=== PATIENT | male | born 1930 | race Caucasian/White ===

== ENCOUNTER 2016-11-23 02:31 | Inpatient (IN) ==
[2016-11-23 02:55] LABS: Basophils % 0.5 %; Eosinophils # 0.2 K/mcL (0.0-0.6); Eosinophils % 2.3 %; Hematocrit 46.7 % (37.5-50.1); Hemoglobin 15.5 g/dL (12.9-16.9); Immature Granulocytes % 0.5 % (0-4); Immature Platelets 2.7 % (1.1-6.1); Lymphocytes # 3.1 K/mcL (0.6-4.6); Lymphocytes % 36.5 %; Mean Corpuscular HGB Conc 33.2 g/dL (31.6-35.5); Mean Corpuscular Hemoglobin 29.6 pg (28.0-33.3); Mean Corpuscular Volume 89.1 fL (83.0-100.0); Mean Platelet Volume 9.9 fL (9.4-12.4); Monocytes # 0.7 K/mcL (0.0-1.3); Monocytes % 8.6 %; Neutrophils # 4.3 K/mcL (1.6-8.9); Platelet Count 188 K/mcL (140-400); Red Blood Count 5.24 M/mcL (4.19-5.50); Red Cell Distribution Width 13.8 % (11.5-14.5); Segmented Neutrophils % 51.6 %
[2016-11-23 03:05] LABS: BUN/Creatinine Ratio 13 (6-26); Blood Urea Nitrogen 14 mg/dL (8-26); Calcium 8.9 mg/dL (8.6-10.8); Carbon Dioxide 21 mEq/L (19-29); Chloride 109 mEq/L (98-109); Glucose 92 mg/dL (70-99); Osmolality,Calculated 290 (280-300); Potassium 4.2 mEq/L (3.5-4.5); Sodium 140 mEq/L (136-145); eGFR For African Americans > 60 (> 60); eGFR For Non-African Americans > 60 (> 60)
[2016-11-23 03:09] LABS: INR 1.1; Prothrombin Time 11.6 Seconds (9.4-12.1)
[2016-11-23 03:12] LABS: Activated Partial Thrombo Time 29.8 Seconds (26.0-36.0)
--- NOTE | 2016-11-23 03:57 | Emergency Department Note ---
Disposition Clinical Impression: PVCs (premature ventricular contractions), Weakness generalized, Heart palpitations, Acute chest pain Disposition: Admitted As Inpatient Condition: Serious Time of Disposition: 04:04 Chest Pain HPI - General Chief Complaint: ED Chest Pain Stated Complaint: CP Time Seen by Provider: 11/23/16 02:39 Source: EMS Limitations: other Vital Signs Reviewed: Yes Nursing Notes Reviewed: Yes - History of Present Illness HPI Narrative: Patient's age 86-year-old male complains of not be feeling his heart 2 days after the administration of [facility] Medications believed to be Depakote. Patient states that he does not know what medications he is on. Patient states they gave him this Medication and Feels heart after he takes. Patient denies chest pain. Patient states feels like when grabbed his heart removed from his chest but no pain. Patient denies any other medical problems. Patient has a history of dementia. Severity scale (1-10): 0 - Related Data Home Medications Medication Instructions Recorded Confirmed Cetirizine HCl [All Day Allergy] 10 mg PO DAILY 11/23/16 11/23/16 Cholecalciferol (Vitamin D3) 50,000 unit PO Q7D 11/23/16 11/23/16 [Vitamin D] Fluticasone Propionate [Flonase 2 spray IN DAILY 11/23/16 11/23/16 Allergy Relief] Mag Hydrox/Al Hydrox/Simeth 30 ml PO TID PRN 11/23/16 11/23/16 [Maalox] Memantine [Namenda] 10 mg PO BID 11/23/16 11/23/16 Montelukast [Singulair] 10 mg PO DAILY 11/23/16 11/23/16 Omeprazole [Omeprazole] 20 mg PO DAILY 11/23/16 11/23/16 Quetiapine Fumarate [Seroquel] 75 mg PO HS 11/23/16 11/23/16 Sennosides/Docusate Sodium 2 tab PO TID PRN 11/23/16 11/23/16 [Senna-S Tablet] Tamsulosin [Flomax] 0.8 mg PO HS 11/23/16 11/23/16 TraZODone [TraZODone] 50 mg PO TID PRN 11/23/16 11/23/16 Valproic Acid [Valproic Acid] 1,250 mg PO HS 11/23/16 11/23/16 Allergies Allergy/AdvReac Type Severity Reaction Status Date / Time acetaminophen [From Vicodin] Allergy See Verified 11/23/16 02:58 Comments hydrocodone [From Vicodin] Allergy See Verified 11/23/16 02:58 Comments piroxicam [From Feldene] Allergy See Verified 11/23/16 02:58 Comments Terazosin Allergy See Verified 11/23/16 02:58 Comments Review of Systems: Patient admits to weakness and lack of sensation of heart only, denies headache , shortness of breath, vision change, dizziness, cough, abdominal pain, numbness and tingling in extremities, dysuria, diarrhea. All systems ED: reviewed and negative except as stated. Chest Pain PMH - Past Medical History Medical history: Reports: COPD, dementia, GERD, hyperlipidemia Psychiatric history: Reports: anxiety, depression, other - Social History Smoking Status: Never smoker Alcohol use: Reports: none Drug use: Reports: none Physical Exam Vital Signs Temperature 98.9 F 11/23/16 02:34 Pulse Rate 63 11/23/16 02:34 Respiratory Rate 20 11/23/16 02:34 Blood Pressure 144/69 11/23/16 02:34 O2 Sat by Pulse Oximetry 99 11/23/16 02:34 Temperature 98.9 F 11/23/16 02:34 Pulse Rate 60 11/23/16 03:49 Respiratory Rate 16 11/23/16 03:49 Blood Pressure 127/78 11/23/16 03:49 O2 Sat by Pulse Oximetry 96 11/23/16 03:49 Oxygen Delivery Oxygen Delivery Nasal Cannula -General Appearance: Patient is a 86-year-old male who is alert and oriented 3 and in no acute distress. -Neurological exam: Cranial nerves II-12 intact, no focal deficits observed, strength equal 5/5 bilaterally in upper and lower extremities, cerebellar motion test negative. Negative loss of sensation - Head Head exam: atraumatic, normocephalic, normal inspection - Eye Eye exam: Present: normal appearance, PERRL, EOMI, negative for scleral icterus negative for conjunctival pallor - ENT ENT exam: normal exam, normal oropharynx, mucous membranes moist - Neck Neck exam: Present: normal inspection, full ROM, trachea midline, negative JVD - Chest Chest inspection: Present: Patient has bilateral equal rise and fall of chest wall. Non-tender to palpation. - Respiratory Respiratory exam: Clear to auscultation bilaterally without wheezes rales or rhonchi Cardiovascular Cardiovascular exam: Present: Irregular rate, irregular rhythm, without murmurs rubs or gallops. - Abdominal Exam Abdominal exam: Present: soft, nondistended, Non-Tender light and deep palpation in all quadrants. Bowel sounds normoactive throughout all 4 quadrants. Negative for hyper or hyperresonance. - Extremities Exam Extremities exam: Present: normal inspection, full ROM - Back Exam Back exam: Present: normal inspection, full ROM. Absent: tenderness, CVA tenderness (R), CVA tenderness (L) - Psychiatric Psychiatric exam: Present: normal affect, normal mood - Skin Skin exam: Present: warm, dry, intact, normal color - General Limitations: other General appearance: alert, in no apparent distress Course Course Narrative: Patient is seen and examined. Imaging, labs ordered - Reevaluation(s) Reevaluation #1: Patient still doing well and has some very colorful stories. Time: 03:30 - Consultations Consultation #1: Dr. Coleman accepted for admission and observation. Time: 04:04 Vital Signs Temperature 98.9 F 11/23/16 02:34 Pulse Rate 63 11/23/16 02:34 Respiratory Rate 20 11/23/16 02:34 Blood Pressure 144/69 11/23/16 02:34 O2 Sat by Pulse Oximetry 99 11/23/16 02:34 Temperature 97.4 F L 11/23/16 05:25 Pulse Rate 63 11/23/16 05:25 Respiratory Rate 17 11/23/16 05:25 Blood Pressure 164/74 11/23/16 05:25 O2 Sat by Pulse Oximetry 98 11/23/16 05:25 Oxygen Delivery Oxygen Delivery Nasal Cannula Chest Pain - [facility] Narrative Medical decision making narrative: Patient comes in with a new onset of dysrhythmia sinus bradycardia with frequent PVCs and onset of weakness and complains of not being able to feel his heart. Patient states she was started on a new medication and had 2 doses.. Each dose resulted in the same feeling of not being would feel his heart per the patient. On arrival patient is alert and oriented 3. Patient does have a component of dementia, the patient states that he is otherwise started feel better. Patient denies any chest pain but states he cannot feel his heart and feels empty in his chest. Patient has a heart score 5. Chest x-ray was unremarkable. Patient's labs were unremarkable. Troponin 0.00. Patient's current heart rate 60 Although patient is feeling better, due to patient's age and seriousness of patient's description not being to feel his heart and a report of heart palpitations due to starting Depakote or some other new medication. It is unsure if this is a side effect of a medication change, but recommend observation overnight. Dr. Coleman cystectomy patient for observation. - Medical Records Medical records reviewed: Yes I reviewed the patient's medical records. - Lab Data Lab results reviewed: Yes I reviewed the patient's lab results. Lab results narrative: Short CBC 11/23/16 Range/Units 02:45 WBC 8.4 (4.3-11.1) K/mcL Hgb 15.5 (12.9-16.9) g/dL Hct 46.7 (37.5-50.1) % Plt Count 188 (140-400) K/mcL Neutrophils # 4.3 (1.6-8.9) K/mcL BMP 11/23/16 Range/Units 02:45 Sodium 140 (136-145) mEq/L Potassium 4.2 (3.5-4.5) mEq/L Chloride 109 (98-109) mEq/L Carbon Dioxide 21 (19-29) mEq/L BUN 14 (8-26) mg/dL Creatinine 1.04 (0.72-1.25) mg/dL Glucose 92 (70-99) mg/dL Calcium 8.9 (8.6-10.8) mg/dL Cardiac Enzymes 11/23/16 Range/Units 02:45 Troponin I 0.00 (0-0.03) ng/mL Result diagrams: 11/23/16 02:45 11/23/16 02:45 Lab Results 11/23/16 11/23/16 11/23/16 Range/Units 02:45 02:45 02:45 WBC 8.4 (4.3-11.1) K/mcL RBC 5.24 (4.19-5.50) M/mcL Hgb 15.5 (12.9-16.9) g/dL Hct 46.7 (37.5-50.1) % MCV 89.1 (83.0-100.0) fL MCH 29.6 (28.0-33.3) pg MCHC 33.2 (31.6-35.5) g/dL RDW 13.8 (11.5-14.5) % Plt Count 188 (140-400) K/mcL MPV 9.9 (9.4-12.4) fL Immature Gran % 0.5 (0-4) % Seg Neutrophils % 51.6 % Lymphocytes % 36.5 % Monocytes % 8.6 % Eosinophils % 2.3 % Basophils % 0.5 % Neutrophils # 4.3 (1.6-8.9) K/mcL Lymphocytes # 3.1 (0.6-4.6) K/mcL Monocytes # 0.7 (0.0-1.3) K/mcL Eosinophils # 0.2 (0.0-0.6) K/mcL Basophils # 0.0 (0.0-0.2) K/mcL Immature Plt Fraction 2.7 (1.1-6.1) % PT 11.6 (9.4-12.1) Seconds INR 1.1 APTT 29.8 (26.0-36.0) Seconds Sodium 140 (136-145) mEq/L Potassium 4.2 (3.5-4.5) mEq/L Chloride 109 (98-109) mEq/L Carbon Dioxide 21 (19-29) mEq/L BUN 14 (8-26) mg/dL Creatinine 1.04 (0.72-1.25) mg/dL Est GFR ( Amer) > 60 (> 60) Est GFR (Non-Af Amer) > 60 (> 60) BUN/Creatinine Ratio 13 (6-26) Glucose 92 (70-99) mg/dL Calculated Osmolality 290 (280-300) Calcium 8.9 (8.6-10.8) mg/dL Troponin I (0-0.03) ng/mL 11/23/16 Range/Units 02:45 WBC (4.3-11.1) K/mcL RBC (4.19-5.50) M/mcL Hgb (12.9-16.9) g/dL Hct (37.5-50.1) % MCV (83.0-100.0) fL MCH (28.0-33.3) pg MCHC (31.6-35.5) g/dL RDW (11.5-14.5) % Plt Count (140-400) K/mcL MPV (9.4-12.4) fL Immature Gran % (0-4) % Seg Neutrophils % % Lymphocytes % % Monocytes % % Eosinophils % % Basophils % % Neutrophils # (1.6-8.9) K/mcL Lymphocytes # (0.6-4.6) K/mcL Monocytes # (0.0-1.3) K/mcL Eosinophils # (0.0-0.6) K/mcL Basophils # (0.0-0.2) K/mcL Immature Plt Fraction (1.1-6.1) % PT (9.4-12.1) Seconds INR APTT (26.0-36.0) Seconds Sodium (136-145) mEq/L Potassium (3.5-4.5) mEq/L Chloride (98-109) mEq/L Carbon Dioxide (19-29) mEq/L BUN (8-26) mg/dL Creatinine (0.72-1.25) mg/dL Est GFR ( Amer) (> 60) Est GFR (Non-Af Amer) (> 60) BUN/Creatinine Ratio (6-26) Glucose (70-99) mg/dL Calculated Osmolality (280-300) Calcium (8.6-10.8) mg/dL Troponin I 0.00 (0-0.03) ng/mL - Radiology Data Radiology results reviewed: Yes I reviewed the patient's radiology results. Chest X-Ray 11/23/16 02:39 IMPRESSION: Low lung volumes with bibasilar atelectasis D/ / Clayton Andre MD / Clayton Andre MD Interpreting Provider: Clayton Andre MD - EKG Data EKG attestation: Yes I reviewed and interpreted this EKG. EKG results narrative: 11/23/2016@0234 hrs.: EKG shows a sinus bradycardia Cartia with PVCs and no ST depressions or elevations. Previous EKG taken 128 2010 shows sinus bradycardia rate of 52 bpm no PVCs Heart Score - Score History: Moderately Suspicious EKG: Non Specific repolarisation Disturbance Age: Greater than 65 Risk Factors: 1-2 risk factors Troponin: Less than normal limit HEART Score Total: 5 Attestation Statement - Attestation Attestation: For this encounter, I have reviewed the resident, UNLOAD ASSOCIATE, or PA documentation, treatment plan, and medical decision making; and I have had face to face time with this patient. 86-year-old male [facility] from [facility] with concerns of chest pain. Patient states that he was feeling his heart skipping beats and had a pressure in his chest. He tried to walk to the nurse's station and developed lightheadedness, palpitations and a feeling of near syncope. Patient denies a history of cardiac disease. Patient denies fever, nausea, vomiting, abdominal pain. Physical examination reveals an alert elderly male in no acute distress. Lungs were clear to auscultation bilaterally. Abdomen was nontender to palpation. Patient EKG shows sinus bradycardia with a rate of 52 and multiple PVCs. Patient felt comfortable with plan for admission to the hospital for repeat troponins and continued care.
[2016-11-23] MEDS ORDERED: Aspirin 81 MG TAB.CHEW PO ONE (04:06)
[2016-11-23] MEDS ORDERED: Naloxone 0.4 MG/ML INJ IVP PRN (04:54)
--- NOTE | 2016-11-23 04:58 | Internal Med History&Physical ---
Date of Encounter: 11/23/16 Time of Encounter: 04:45 Assessment and Plan (1) Chest pain Current visit: Yes Status: Acute As stated in the HPI the patient is a poor historian. Uncertain history of chest pain. ED workup is negative. Will trend troponins, put patient on engine monitor, and evaluate with echocardiogram. EKG demonstrates nonspecific repolarization disturbance and sinus arrhythmia. Chest XR: low long volumes with bibasilar atelectasis. Qualifiers: Chest pain type: unspecified Qualified Code(s): R07.9 - Chest pain, unspecified (2) Dementia Current visit: Yes Status: Acute The patient is on seroquel and valproic acid for behavioral disturbances with his alzheimers. Will obtain valproic acid levels and hold for time being as this seems to be the medication causing his chief complaint. Consult to social worker for evaluation of placement after hospitalization as the patient does not want to return to the [facility] after discharge. Qualifiers: Dementia type: Alzheimer's disease Alzheimer's disease onset: late-onset Dementia behavioral disturbance: with behavioral disturbance Qualified Code(s) : G30.1 - Alzheimer's disease with late onset; F02.81 - Dementia in other diseases classified elsewhere with behavioral disturbance (3) COPD (chronic obstructive pulmonary disease) Current visit: Yes Status: Acute Not in acute exacerbation. Not on home oxygen Qualifiers: COPD type: unspecified COPD Qualified Code(s): J44.9 - Chronic obstructive pulmonary disease, unspecified (4) DVT prophylaxis Current visit: Yes Status: Acute Ordered compression stockings. Internal Medicine - H&P: HPI Chief complaint: chest pain Admitted From: Emergency Dept Plans for Post Hospital Care: Home History of present illness: Mr. Case is a 86 year old male with PMH of COPD, dementia, GERD, HLD, anxiety, and depression who presented to the emergency department for a chief complaint of chest pain. The patient is a poor history who told varying stories to separate providers after arrival [facility]. He is currently a resident in the [facility] at the [facility] and was brought to the ED for chest pain. He initially stated that he was having some chest pain that caused him to have some dizziness, but was unable to describe the chest pain. He then stated that he did not have any chest pain, but had a sensation that he could not feel his heart after he had been started on a new medication that he believes to be valproic acid. He then stated to be that he never had any pain in his chest and that he has taken care of himself his whole life and that he just felt that after he had been started on a new medication at the [facility] that he felt as if his heart was going to stop. He denies ever having any pain and states that he does not like being at the [facility] hospital and that everyone else present besides the doctors are crazy people who are not capable of having a conversation. He denies all ROS questions. Past Med Surg Social Fam HX - Past Medical History Medical history: COPD, dementia, GERD, hyperlipidemia Psychiatric history: anxiety, depression, other - Past Surgical History Surgical History: herniorrhaphy (left inguinal hernia repair) - Social History Smoking Status: Never smoker Alcohol use: none Drug use: none - Additional Family History Additional family history: Reports no significant family history. Internal Medicine - H&P: Meds Cetirizine HCl [All Day Allergy] 10 mg PO DAILY 11/23/16 [History] Cholecalciferol (Vitamin D3) [Vitamin D] 50,000 unit PO Q7D 11/23/16 [History] Fluticasone Propionate [Flonase Allergy Relief] 2 spray IN DAILY 11/23/16 [ History] Mag Hydrox/Al Hydrox/Simeth [Maalox] 30 ml PO TID PRN 11/23/16 [History] Memantine [Namenda] 10 mg PO BID 11/23/16 [History] Montelukast [Singulair] 10 mg PO DAILY 11/23/16 [History] Omeprazole [Omeprazole] 20 mg PO DAILY 11/23/16 [History] Quetiapine Fumarate [Seroquel] 75 mg PO HS 11/23/16 [History] Sennosides/Docusate Sodium [Senna-S Tablet] 2 tab PO TID PRN 11/23/16 [History] Tamsulosin [Flomax] 0.8 mg PO HS 11/23/16 [History] TraZODone [TraZODone] 50 mg PO TID PRN 11/23/16 [History] Valproic Acid [Valproic Acid] 1,250 mg PO HS 11/23/16 [History] Allergies acetaminophen [From Vicodin] Allergy (Verified 11/23/16 02:58) See Comments hydrocodone [From Vicodin] Allergy (Verified 11/23/16 02:58) See Comments piroxicam [From Feldene] Allergy (Verified 11/23/16 02:58) See Comments Terazosin Allergy (Verified 11/23/16 02:58) See Comments All Systems PM: A 10-system review of systems was performed and is negative for pertinent findings except as documented above in the HPI. - Constitutional Constitutional: no chills, no fever(s), no night sweats - EENT Eyes: no change in vision, no discharge, no pain, no photophobia Ears: no ear discharge, no ear pain, no tinnitus Nose, mouth and throat: no dysphagia, no nasal discharge, no neck pain, no sore throat - Cardiovascular Cardiovascular ROS IM: no chest pain, no diaphoresis, no dyspnea, no lightheadedness, no palpitations, no syncope - Respiratory Respiratory: no cough, no dyspnea, no wheezing, no excessive phlegm production - Gastrointestinal Gastrointestinal: no abdominal pain, no diarrhea, no hematemesis, no hematochezia, no melena, no nausea, no vomiting - Musculoskeletal Musculoskeletal ROS IM: no numbness, no tingling - Integumentary Integumentary IM: no rash, no unusual bruising - Neurological Neurological ROS: no confusion, no convulsions, no focal weakness, no numbness, no tingling, no tremor(s) - Hematologic/Lymphatic Hematologic/Lymphatic: no easy bruising - Constitutional Vitals: Temp Pulse Resp BP Pulse Ox 98.9 F 60 16 127/78 96 11/23/16 02:34 11/23/16 03:49 11/23/16 03:49 11/23/16 03:49 11/23/16 03:49 General appearance: Present: A&O X 3, pleasant, no acute distress, answers questions appropriately - Head Head exam: Present: atraumatic, normocephalic - Eye Eye exam: Present: EOMI, PERRL, conjuntiva pink, sclera anicteric Pupils: Present: PERRL - Neck Neck exam general surgery: Present: supple, trachea midline. Absent: lymphadenopathy - Respiratory Respiratory exam: Present: CTAB. Absent: accessory muscle use, rales, rhonchi, wheezes - Cardiovascular Cardiovascular exam: Present: irregular rhythm, +S1, +S2. Absent: diastolic murmur, gallop, rubs, systolic murmur - GI/Abdominal GI/Abdominal exam: Present: normal bowel sounds, soft, no peritoneal signs. Absent: distended, tenderness - Extremities Exam Extremities exam: Present: warm, radial pulses palpable and symetrical. Absent : calf tenderness, cyanotic, pedal edema - Neurological Exam Neurological exam: Present: CN II-XII intact, oriented X3, no focal deficits. Absent: pronater drift, facial droop, speech deficit - Skin Skin exam: Present: dry, intact Internal Med - H&P Results - Labs CBC & Chem 7: 11/23/16 02:45 11/23/16 02:45 - Attending Attestation I examined this patient and my medical decision-making was reviewed with the MECHANICAL SUPERVISOR/PA/Advanced Practice Nurse/Resident Physician. I agree with the documented findings, disposition and treatment plan as described except to the extent set forth below.
[2016-11-23] MEDS: *HR* Enoxaparin 30 MG/0.3 ML SYRINGE SQ SCH (06:03)
--- NOTE | 2016-11-23 12:01 | ECHO - Doppler Report ---
Echocardiogram Name: Matthias Case Date of Study: 11/23/2016 Date: 1930 Ht: 76.0 in Medical Record#: [id number] Age: 86 Wt: 210.0 lb Gender: Male BSA: 2.26 Order #: [id number] Location: [facility] Room #: [id number] Reading Physician: Keshawn Moore MD, [facility] Gimp Tacker: SHAGUFTA Ramos, S Ordering Physician: Remberto Munoz DO Primary Physician: [facility] Indications: Chest pain Impressions: Technically suboptimal due to poor echocardiographic windows. Normal left ventricular size and systolic function, LVEF 55%. Not all myocardial segments were well visualized. Mild left ventricular diastolic dysfunction. Normal right ventricular structure and function. No significant valvular dysfunction. No evidence of pulmonary hypertension. Left Ventricular Wall Motion: Rest Echo Findings All wall segments showed normal motion. Findings: Study Quality * Technically suboptimal due to poor echocardiographic windows. ECG Findings * Sinus rhythm with occasional PVCs. Left Ventricle * Normal left ventricular size and systolic function, LVEF 55%. Not all myocardial segments were well visualized. * Normal LV wall thickness. * Mild left ventricular diastolic dysfunction. Right Ventricle * Normal right ventricular structure and function. Left Atrium * Normal left atrial size. Right Atrium * Normal right atrial size. Aorta * Normally sized aortic root. Pericardium * There is no pericardial effusion present. IVC * The IVC is not well evaluated. Aortic Valve * Aortic valve not well visualized. Appears mildly sclerotic. * No aortic stenosis. * Trace aortic regurgitation. Mitral Valve * Normal mitral valve structure. * No mitral stenosis. * Trace mitral regurgitation. Tricuspid Valve * Tricuspid valve not well visualized. * No tricuspid stenosis. * Trace tricuspid regurgitation. * No evidence of pulmonary hypertension. Pulmonic Valve * Pulmonic valve not well visualized. * No pulmonic stenosis. * Trace pulmonic regurgitation. History Hypertension Hypercholesteremia Measurements: BP: 164/ 74 2D Normal Values RVIDd: 3.50 cm IVSd: 1.00 cm 0.6 - 1.0 cm LVIDd: 5.40 cm 3.7 - 5.6 cm LVPWd: 1.00 cm 0.6 - 1.1 cm LVIDs: 3.30 cm 1.5 - 3.6 cm AO: 3.60 cm < 4.0 cm LA volume: 48 Mitral Valve Peak E:.52 m/sec Peak A:.82 m/sec E/A Ratio:0.6 Tricuspid Valve TV Regurg Peak Grad: 19.00mmHg TV Regurg Peak Sixto: 2.16m/sec Updated by Keshawn Moore MD, [facility] on 11/23/2016 11:51:29 AM electronically signed on 11/23/2016 11:56:02 AM with status of Final Wall Motion Vargas: 1=Normal, 2=Hypokinesis, 3=Akinesis, 4=Dyskinesis, 5=Aneurysmal, 6=Hyperkinetic, X=Not Visualized (Blank)=Missing
--- NOTE | 2016-11-23 17:25 | Internal Med Progress Note ---
Date of Encounter: 11/23/16 Time of Encounter: 12:00 - Assessment and plan (1) Chest pain Current Visit: Yes Status: Acute Qualifiers: Chest pain type: unspecified Qualified Code(s): R07.9 - Chest pain, unspecified (2) Dementia Current Visit: Yes Status: Acute Qualifiers: Dementia type: Alzheimer's disease Alzheimer's disease onset: late-onset Dementia behavioral disturbance: with behavioral disturbance Qualified Code(s) : G30.1 - Alzheimer's disease with late onset; F02.81 - Dementia in other diseases classified elsewhere with behavioral disturbance (3) Weakness generalized Current Visit: Yes Status: Acute - Subjective Interval history: 86 Y/O M with Bipolar disorder , Dementia with behavioural disturbance transferred from [facility] with complains of chest pain Patient is a poor historian with different accounts to his HPI However, referral note fro the [facility] reports patient presented to the nursing station with "crushing retrosternal chest pain" attributed to whenever he gets his depakote. He was transferred here on O2 for evaluation When I saw his this morning, he was dressed and ready to go home. He denies chest pain at that time, and reports "I'm 86 but I feel like I'm 41" He denies any prior cardiac history, prior chest pain was associated with dizziness and pre-syncope, he reported he had to be held up by one of the assistants Troponin here is negative X3 EKG done at [facility] showed Sinus arrhythmia with QTC prolongation, possible septal lead TW inversions but there were many artifacts. EKG here revealed sinus arrhythmia with frequent PVCs Patient continues to have low normal HR EKG repeated this afternoon with first degree AV block ECHO showed LVEF of 55-60%, Mild LVDD, N RV structure and function, no valvular dysfunction and no wall motion abnormalities Physical Exa VS: Bradycardia , sinus on telemetry , with lowest HR 51. BP acceptable for age HEENT: Unremarkable Chest clear Heart: S1, S2, RRR. No m/g/r Abdomen is unremarkable Extremities: NO edema Labs reviewed: Unremarkable Assessment/Plan 1. Chest pain: Probably cardiac based on patient's history, will monitor on telemetry and consult cardiology. Patient is chest pain free at this time 2. Sinus bradycardia with 1st degree A-V block and differing EKG patterns: Consult cardiology. Monitor on telemetry 3. Dementia: Fall precautions, resumed home meds. Valproic level sub-optimal, continue to hold - Constitutional Vitals: Temp Pulse Resp BP Pulse Ox 98.2 F 61 16 138/83 96 11/23/16 16:04 11/23/16 16:04 11/23/16 16:04 11/23/16 16:04 11/23/16 16:04 General appearance: Present: A&O X 3, pleasant, no acute distress, answers questions appropriately - Head Head exam: Present: atraumatic, normocephalic - Eye Eye exam: Present: PERRL, conjuntiva pink, sclera anicteric Pupils: Present: PERRL - Neck Neck exam general surgery: Present: supple, trachea midline. Absent: lymphadenopathy - Respiratory Respiratory exam: Present: CTAB. Absent: accessory muscle use, rales, rhonchi, wheezes - Cardiovascular Cardiovascular exam: Present: RRR, +S1, +S2. Absent: diastolic murmur, gallop, rubs, systolic murmur - GI/Abdominal GI/Abdominal exam: Present: normal bowel sounds, soft, no peritoneal signs. Absent: distended, tenderness - Extremities Exam Extremities exam: Present: warm, radial pulses palpable and symetrical. Absent : calf tenderness, cyanotic, pedal edema - Neurological Exam Neurological exam: Present: CN II-XII intact, oriented X3, no focal deficits. Absent: pronater drift, facial droop, speech deficit - Skin Skin exam: Present: dry Internal Medicine: Result - Labs CBC & Chem 7: 11/23/16 02:45 11/23/16 02:45 Labs: Cardiac Enzymes 11/23/16 11/23/16 Range/Units 06:19 12:33 Troponin I 0.03 0.01 (0-0.03) ng/mL - ABG Interpretation ABG results: PT/INR, D-dimer PT 11.6 Seconds (9.4-12.1) 11/23/16 02:45 Consult Discharge Plan - Plan [facility]errals: [facility] [Primary Care Provider] -
[2016-11-24] MEDS: *HR* Enoxaparin 30 MG/0.3 ML SYRINGE SQ SCH (06:12)
--- NOTE | 2016-11-24 09:22 | Cardiology Consult Note ---
Date of Encounter: 11/24/16 Time of Encounter: 09:18 Assessment and Plan (1) Chest pain Current Visit: Yes Status: Acute Atypical chest pain after taking a new medication prescribed by [facility]. Troponin negative. EKG shows no significant ST changes. Preserved EF, EF 55%, no significant valvular disease. Cardiac risk factors include HTN and age. I discussed stress test as an option to further evaluate symptoms and he declines. He would like to stop taking the new medication, which is reasonable. No further testing. Follow with PCP at the [facility]. Qualifiers: Chest pain type: unspecified Qualified Code(s): R07.9 - Chest pain, unspecified Discussion w patient/family: The assessment and plan as outlined above was discussed with the patient and/or family members who expressed understanding and agreement. All questions were answered. Thank you for involving us in the care of your patient. Please call with any questions. History of Present Illness Consult date: 11/24/16 Consult reason: Chest pain Chief complaint: chest pain History of present illness: Mr. Case is a 86 year old male with a history of dementia, HLD, and COPD who presented from the [facility] with chest pain. He reports a left-sided chest pain 2 days ago after taking a new medication. He reports noticing the pain one week prior and starting the medication. His pain occurs at rest and is non-radiating squeezing midsternal chest discomfort .He also reports palpitations that are not new. He reports, "I've had skipped beats for years. "He was reported to have tenderness when he walked to the nursing station at the [facility]. He was found to have a heart rate in the 50s with occasional PVCs. His initial EKG shows sinus bradycardia with a heart rate of [address] changes. His troponins are negative 3. He did have an echocardiogram that shows normal EF and no significant Valvular disease. Cardiology consulted for evaluation of chest pain. Past Med Surg Social Fam HX - Past Medical History Medical history: COPD, dementia, GERD, hyperlipidemia Psychiatric history: anxiety, depression, other - Past Surgical History Surgical History: herniorrhaphy - Social History Smoking Status: Never smoker Smokeless Tobacco Status: No Alcohol use: none Drug use: none - Family History Mother Living Status: Age at : 80 Father Living Status: Medications and Allergies Cetirizine HCl [All Day Allergy] 10 mg PO DAILY 12/31/16 [History] Cholecalciferol (Vitamin D3) [Vitamin D] 50,000 unit PO QWEEK 11/23/16 [History] Fluticasone Propionate [Flonase Allergy Relief] 100 mcg IN DAILY 11/23/16 [ History] Mag Hydrox/Al Hydrox/Simeth [Maalox] 30 ml PO TID PRN 11/23/16 [History] Memantine [Namenda] 10 mg PO BID 11/23/16 [History] Montelukast [Singulair] 10 mg PO DAILY 11/23/16 [History] Omeprazole [Omeprazole] 20 mg PO DAILY 11/23/16 [History] Quetiapine Fumarate [Seroquel] 75 mg PO HS 11/23/16 [History] Sennosides/Docusate Sodium [Senna-S Tablet] 2 tab PO TID PRN 11/23/16 [History] Tamsulosin [Flomax] 0.8 mg PO HS 11/23/16 [History] TraZODone [TraZODone] 50 mg PO TID PRN 11/23/16 [History] Valproic Acid [Valproic Acid] 1,250 mg PO HS 11/23/16 [History] Allergies acetaminophen [From Vicodin] Allergy (Unknown, Verified 11/23/16 14:14) See Comments UNKNOWN REACTION- OBTAINED FROM [facility] hydrocodone [From Vicodin] Allergy (Unknown, Verified 11/23/16 14:14) See Comments UNKNOWN REACTION- OBTAINED FROM [facility] piroxicam [From Feldene] Allergy (Unknown, Verified 11/23/16 14:14) See Comments UNKNOWN REACTION- OBTAINED FROM [facility] Terazosin Allergy (Unknown, Verified 11/23/16 14:14) See Comments [facility] RE[facility]- [facility] All Systems Review: A 10-system review of systems was performed and is negative for pertinent findings except as documented above in the HPI. Physical Examination Vital Signs, Last 4 Hours Temp Pulse Resp BP Pulse Ox 11/24/16 07:21 97.9 F 64 15 140/80 93 L General: Conversant, No Apparent Distress HEENT: Atraumatic, Normocephaly, Mucus Membranes Moist Neck: No JVD, Normal carotid pulses Cardiac: Reg Rate and Rhythm, Normal S1 and S2, No Murmur Lungs: Normal Breath Sounds, No Wheeze, Rales, Rhonchi Neuro: Alert and responsive, No focal deficits noted Abdomen: Soft, Non-Tender Skin: No rashes noted on visualized skin Musculoskeletal: No Chest Wall Tenderness Extremities: No Clubbing, No Cyanosis, No Edema, Normal Pulses Results 11/23/16 02:45 11/23/16 02:45 Lab Results 11/23/16 11/23/16 12:33 17:03 Troponin I 0.01 0.00 - Imaging and Cardiology Echo: report reviewed - EKG Interpretation EKG results cardiology: personally reviewed (SB with PAC) Consult Discharge Plan - Plan Referrals: [facility] [Primary Care Provider] -
[2016-11-24 11:24] VITALS: BP 167/66
--- NOTE | 2016-11-24 11:43 | Physician Discharge Referral ---
ExtendedCare Referral Info Transfer To: [place] Provider in Charge after Transfer: Other Institutional Level of Care: Skilled - Diagnosis (1) Chest pain Priority: Primary Status: Resolved (2) Dementia Priority: Secondary Status: Chronic (3) Weakness generalized Priority: Secondary Status: Acute Prognosis: Good Aware of Diagnosis: Patient Aware of Prognosis: Patient - Transfer Medications Home Medications: Cetirizine HCl [All Day Allergy] 10 mg PO DAILY 11/23/16 [History] Cholecalciferol (Vitamin D3) [Vitamin D] 50,000 unit PO QWEEK 11/23/16 [History] Fluticasone Propionate [Flonase Allergy Relief] 100 mcg IN DAILY 11/23/16 [ History] Mag Hydrox/Al Hydrox/Simeth [Maalox] 30 ml PO TID PRN 11/23/16 [History] Memantine [Namenda] 10 mg PO BID 11/23/16 [History] Montelukast [Singulair] 10 mg PO DAILY 11/23/16 [History] Omeprazole [Omeprazole] 20 mg PO DAILY 11/23/16 [History] Quetiapine Fumarate [Seroquel] 75 mg PO HS 11/23/16 [History] Sennosides/Docusate Sodium [Senna-S Tablet] 2 tab PO TID PRN 11/23/16 [History] Tamsulosin [Flomax] 0.8 mg PO HS 11/23/16 [History] TraZODone [TraZODone] 50 mg PO TID PRN 11/23/16 [History] Valproic Acid [Valproic Acid] 1,250 mg PO HS 11/23/16 [History] Allergies/Adverse Reactions: Allergies acetaminophen [From Vicodin] Allergy (Unknown, Verified 11/23/16 14:14) See Comments UNKNOWN REACTION- OBTAINED FROM [facility] hydrocodone [From Vicodin] Allergy (Unknown, Verified 11/23/16 14:14) See Comments UNKNOWN REACTION- OBTAINED FROM [facility] piroxicam [From Feldene] Allergy (Unknown, Verified 11/23/16 14:14) See Comments UNKNOWN REACTION- OBTAINED FROM [facility] Terazosin Allergy (Unknown, Verified 11/23/16 14:14) See Comments UNKNOWN REACTION- OBTAINED FROM [facility] - Respiratory Orders Smoking Cessation: Smoking cessation has been advised. For more information, call the [place] Tobacco Quit Line at 7-046-PUDZ-NOW. - Mobility Orders Ambulate - Diet Orders Cardiac CERTIFICATION: I certify that the transfer of the above named patient to an Extended Care Facility is necessary for the continuing treatment of the diagnosis listed. The above information is true and accurate reflection of patient's current condition. Confidential - Redisclosure prohibited without a patient's written consent.
--- NOTE | 2016-11-24 11:46 | Discharge Summary ---
Date of Encounter: 11/24/16 Time of Encounter: 11:45 - Discharge Diagnosis (1) Chest pain Priority: Primary Status: Resolved Qualifiers: Chest pain type: unspecified Qualified Code(s): R07.9 - Chest pain, unspecified (2) Dementia Priority: Secondary Status: Chronic Qualifiers: Dementia type: Alzheimer's disease Alzheimer's disease onset: late-onset Dementia behavioral disturbance: with behavioral disturbance Qualified Code(s) : G30.1 - Alzheimer's disease with late onset; F02.81 - Dementia in other diseases classified elsewhere with behavioral disturbance (3) Weakness generalized Priority: Secondary Status: Acute - Discharge Medications Home Medications: Cetirizine HCl [All Day Allergy] 10 mg PO DAILY 11/23/16 [History] Cholecalciferol (Vitamin D3) [Vitamin D] 50,000 unit PO QWEEK 11/23/16 [History] Fluticasone Propionate [Flonase Allergy Relief] 100 mcg IN DAILY 11/23/16 [ History] Mag Hydrox/Al Hydrox/Simeth [Maalox] 30 ml PO TID PRN 11/23/16 [History] Memantine [Namenda] 10 mg PO BID 11/23/16 [History] Montelukast [Singulair] 10 mg PO DAILY 11/23/16 [History] Omeprazole [Omeprazole] 20 mg PO DAILY 11/23/16 [History] Quetiapine Fumarate [Seroquel] 75 mg PO HS 11/23/16 [History] Sennosides/Docusate Sodium [Senna-S Tablet] 2 tab PO TID PRN 11/23/16 [History] Tamsulosin [Flomax] 0.8 mg PO HS 11/23/16 [History] TraZODone [TraZODone] 50 mg PO TID PRN 11/23/16 [History] Valproic Acid [Valproic Acid] 1,250 mg PO HS 11/23/16 [History] Allergies/Adverse Reactions: Allergies acetaminophen [From Vicodin] Allergy (Unknown, Verified 11/23/16 14:14) See Comments UNKNOWN REACTION- OBTAINED FROM [facility] hydrocodone [From Vicodin] Allergy (Unknown, Verified 11/23/16 14:14) See Comments UNKNOWN REACTION- OBTAINED FROM [facility] piroxicam [From Feldene] Allergy (Unknown, Verified 11/23/16 14:14) See Comments UNKNOWN REACTION- OBTAINED FROM [facility] Terazosin Allergy (Unknown, Verified 11/23/16 14:14) See Comments UNKNOWN REACTION- OBTAINED FROM [facility] Procedures/tests Complete & Pending: Procedures Performed prior 72 hours Category Date Time Status EV echocardiogram Stat Y 11/23/16 04:55 Completed Date of admission: 11/23/16 04:33 [facility] physician: [facility] Consults: 11/23/16 05:06 Consult to [facility] [CONS] Routine Reason for Consult: Patient expresses not wanting to go back to the [facility] alzheimer's james. States he wants to go home to his family as nobody listens to him at the [facility]. 11/23/16 05:34 Consult to [facility] [CONS] Routine Reason for Consult: Discharge planning, return to [facility] vs. Home 11/23/16 17:29 Consult to Cardiology [CONS] Routine Comment: Consulting Provider: Taz Nieto Reason for Consult: Symptomatic bradycardia with 1st degree AV block Call Completed: No Discharging clinician: Devon Romeo Anticipated date of discharge: 11/24/16 - Patient Status Disposition: Transfer Other Condition: Fair Functional capacity at discharge: independent ambulation Overall status at discharge: patient is back to baseline - Discharge Instructions Follow Up With: [facility] [Primary Care Provider] - - Diet and Activity Activity: resume usual activities as tolerated Diet: low salt diet Interval History: See below Hospital course: Mr. Case is a 86 year old male hospitalized for chest pain attributed by patient to depakote Physical Exam significant for sinus bradycardia Troponin negative X3. EKG shows no significant ST changes. Preserved EF, EF 55%, no significant valvular disease. Cardiac risk factors include HTN and age. Patient was seen by cardiology this morning with recommendation for a stress test which he declined He has been asymptomatic since admission and ambulatory He is stable to return to the [facility] for management of his other chronic condition - Time Spent with Patient Total time spent providing and/or coordinating discharge services: Less than 30 minutes - Constitutional Vitals: Temp Pulse Resp BP Pulse Ox 97.4 F L 71 16 167/66 91 L 11/24/16 11:23 11/24/16 11:23 11/24/16 11:23 11/24/16 11:23 11/24/16 11:23 General appearance: Present: A&O X 3, pleasant, no acute distress, answers questions appropriately - Head Head exam: Present: atraumatic, normocephalic - Eye Eye exam: Present: PERRL, conjuntiva pink, sclera anicteric Pupils: Present: PERRL - Neck Neck exam general surgery: Present: supple, trachea midline. Absent: lymphadenopathy - Respiratory Respiratory exam: Present: CTAB. Absent: accessory muscle use, rales, rhonchi, wheezes - Cardiovascular Cardiovascular exam: Present: RRR, +S1, +S2. Absent: diastolic murmur, gallop, rubs, systolic murmur - GI/Abdominal GI/Abdominal exam: Present: normal bowel sounds, soft, no peritoneal signs. Absent: distended, tenderness - Extremities Exam Extremities exam: Present: warm, radial pulses palpable and symetrical. Absent : calf tenderness, cyanotic, pedal edema - Neurological Exam Neurological exam: Present: CN II-XII intact, oriented X3, no focal deficits. Absent: pronater drift, facial droop, speech deficit - Skin Skin exam: Present: dry, intact
[2016-11-24] MEDS ORDERED: *HR* Enoxaparin 30 MG/0.3 ML SYRINGE SQ SCH (18:00)
--- NOTE | 2016-11-25 14:09 | Electrocardiograph Report ---
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
--- NOTE | 2016-11-25 14:17 | Electrocardiograph Report ---
[facility] Test Date: 2016-11-23 Pat Name: Matthias Case Department: 113 Room: 3B21 Gender: M Pre Certification Specialist: VERNON : 1930 Requested By: Jason Alegre Order Number: [id number] Reading MD: Mamadou Gonzales MD Measurements Intervals [place] Rate: 59 P: 67 [place]: 222 QRS: 7 QRSD: 101 T: 71 QT: 417 QTc: 416 Interpretive Statements SINUS BRADYCARDIA WITH SINUS ARRHYTHMIA WITH FIRST DEGREE AV BLOCK BASELINE ARTIFACT AT BEGINNING OF TRACING Electronically Signed On 11-25-16 14:16:24 EST by Mamadou Gonzales MD
[2016-11-27 23:04] LABS: Valproate Free 8 ug/mL (7-23); Valproate Total 66 ug/mL (50-125)
[2016-11-28 07:42] LABS: Valproate % Free 12 % (5-18)
== END 2016-11-24 13:05 | disposition other institution (70) | DRG 313 ==
LOC: EMEROO 02:31 → 3BNU 04:33 → SUATTDRO 04:33 → 3BNU 04:55
PROVIDERS: ADMIT Hospitalist; ATTEND Internal Medicine